=== PATIENT | female | born 1950 | race Two or more races ===

== ENCOUNTER 2025-05-31 12:39 | Emergency (ER) | payer OTHER ==
[~2025-05-31] VITALS: Ht 162.6 cm; Wt 92.0 kg
[2025-05-31 15:10] LABS: Hematocrit 48.9 % (36.0-46.0); Hemoglobin 16.5 g/dL (12.2-16.2); Mean Corpuscular Hemoglobin 31.8 pg (28.0-32.0); Mean Corpuscular Volume 94.0 fL (80.0-100.0); Nucleated Red Blood Cells % 0.2 %
[2025-05-31 15:17] LABS: Chloride 104 mmol/L (98-107); Potassium 4.3 mmol/L (3.5-5.1); Sodium 137 mmol/L (136-145)
[2025-05-31 15:18] LABS: Anion Gap 9 (5-15); Carbon Dioxide 24 mmol/L (20-31)
[2025-05-31 15:22] LABS: Calcium 10.5 mg/dL (8.7-10.4)
[2025-05-31 15:23] LABS: BUN/Creatinine Ratio 15.6 (10.0-20.0); Blood Urea Nitrogen 15 mg/dL (9-23); Glucose 95 mg/dL (74-106)
--- NOTE | 2025-05-31 16:22 | ED.PDOC ---
History of Present Illness HPI Comments 74 y/o obese F presents with friend for c/c headache and dizziness. 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 No endorsement of any recent injuries or ailments. Denial of any vision or speech changes, facial droop, lightheadedness, or further associated symptoms. History of HTN, HLD, PTCA, and NE Chief Complaint: Headache Time Seen by MD: 14:40 Reviewed Notes: Nurses Notes, Medications, Allergies Allergies: Uncoded Allergies: ORAL PAIN MEDICATIONS (Adverse Reaction, Intermediate, GI UPSET, 05/31/25) Information Source: Patient Mode of Arrival: Wheelchair Severity: Moderate Timing: Hours Duration: Since onset Prehospital treatment: None Past Medical History PAST MEDICAL HISTORY: High Lipids, HTN, NE Surgical History: PTCA All Other Systems: Reviewed and Negative (Comprehensive systems review obtained and negative except for what is stated in the HPI.) Physical Exam General Appearance: Moderate Distress HEENT: Normal ENT Inspection, Pharynx Normal, TMs Normal Neck: Full Range of Motion, Non-Tender, Normal, Normal Inspection Respiratory: Chest Non-Tender, Lungs Clear, No Accessory Muscle Use, No Respiratory Distress, Normal Breath Sounds Cardiovascular: No Edema, No JVD, No Murmur, No Gallop, Normal Peripheral Pulses, Regular Rate/Rhythm Breast Exam: Deferred Gastrointestinal: No Organomegaly, Non Tender, No Pulsatile Mass, Normal Bowel Sounds, Soft Genitalia: Deferred Pelvic: Deferred Rectal: Deferred Extremities: No calf tenderness, Normal capillary refill, Normal inspection, Normal range of motion, Non-tender, No pedal edema Musculoskeletal : Apperance: Normal Neurologic: Alert, mining manager II-XII nml as Tested, No Motor Deficits, Normal Affect, Normal Mood, No Sensory Deficits Cerebellar Function: Normal, NOT DONE Reflexes: Normal Skin: Dry, Normal Color, Warm Lymphatic: No Adenopathy Was a procedure done? Was a procedure done?: No EKG EKG : Pulse Rate (adult): 71 [place]: Normal Cardiac Rhythm: NSR Block: None Hypertrophy: None ST: Normal Differential Dx Considerations may include: cluster migraines, tension headaches, vertigo, arterial occlusion, CVA, TIA, among others X-Ray, Labs, Meds, VS Vital Signs Date Time Temp Pulse Resp B/P (MAP) Pulse Ox O2 Delivery O2 Flow Rate FiO2 05/31/25 17:34 76 20 157/86 05/31/25 16:22 71 05/31/25 15:49 98.7 73 16 143/98 (113) 96 98.7 05/31/25 15:49 73 16 96 Room Air 05/31/25 12:57 71 05/31/25 12:43 97.8 71 18 131/77 95 97.8 Lab Test 05/31/25 16:00 05/31/25 14:59 Range/Units Urine Color Colorless Yellow Urine Clarity Clear Clear Urine pH 5.0 5.0-9.0 Urine Specific [place] 1.008 1.001-1.035 Urine Protein Negative Negative Urine Ketones Negative Negative Urine Blood Negative Negative /uL Urine Nitrite Negative Negative Urine Bilirubin Negative Negative Urine Urobilinogen Normal Negative mg/dL Urine Leukocyte Esterase Negative Negative /uL Urine RBC <1 0 - 4 /hpf Urine Microscopic WBC 2 0-5 /HPF Urine Squamous Epithelial Cells None seen <5 /hpf Urine Bacteria None seen None Seen /hpf Urine Glucose Normal Normal mg/dL White Blood Count 10.3 4.4-10.8 10^3/uL Red Blood Count 5.20 4.0-5.20 10^6/uL Hemoglobin 16.5 H 12.2-16.2 g/dL Hematocrit 48.9 H 36.0-46.0 % Mean Corpuscular Volume 94.0 80.0-100.0 fL Mean Corpuscular Hemoglobin 31.8 28.0-32.0 pg Mean Corpuscular Hemoglobin Concent 33.8 32.0-36.0 g/dL Red Cell Distribution Width 15.4 H 11.8-14.3 % Platelet Count 221 140-450 10^3/uL Mean Platelet Volume 9.0 6.9-10.8 fL Neutrophils (%) (Auto) 60.5 37.0-80.0 % Lymphocytes (%) (Auto) 27.7 10.0-50.0 % Monocytes (%) (Auto) 7.0 0.0-12.0 % Eosinophils (%) (Auto) 3.9 0.0-7.0 % Basophils (%) (Auto) 0.9 0.0-2.0 % Neutrophils # (Auto) 6.2 1.6-8.6 10 ^3/uL Lymphocytes # (Auto) 2.8 0.4-5.4 10 ^3/uL Monocytes # (Auto) 0.7 0-1.3 10 ^3/uL Eosinophils # (Auto) 0.4 0-0.8 10 ^3/uL Basophils # (Auto) 0.1 0-0.2 10 ^3/uL Nucleated Red Blood Cells 0.2 % Sodium Level 137 136-145 mmol/L Potassium Level 4.3 3.5-5.1 mmol/L Chloride Level 104 98-107 mmol/L Carbon Dioxide Level 24 20-31 mmol/L Anion Gap 9 5-15 Blood Urea Nitrogen 15 9-23 mg/dL Creatinine 0.96 0.550-1.02 mg/dL Glomerular Filtration Rate Calc 62 >90 mL/min BUN/Creatinine Ratio 15.6 10.0-20.0 Serum Glucose 95 74-106 mg/dL Calcium Level 10.5 H 8.7-10.4 mg/dL Current Medications Medications (Trade) Dose Ordered Sig/Celestino Route Start Time Stop Time Status Last Admin Morphine Sulfate 4 mg ONCE ONCE IV 05/31/25 16:30 05/31/25 16:31 DC 05/31/25 17:34 Ondansetron HCl (Zofran) 4 mg ONCE ONCE IV 05/31/25 16:30 05/31/25 16:31 DC 05/31/25 17:32 Lorazepam (Ativan Inj) 1 mg ONCE ONCE IV 05/31/25 17:00 05/31/25 17:01 DC 05/31/25 16:56 Patient alert. Came in because of headache. Vitals stable. Answering questions. Moving all extremities. Reviewed her visit to [facility]. WBC within normal limits. Hemoglobin elevated. Establish intravenous access. Was given Ativan. Was given morphine. Was given Zofran. Spoke with [facility] physician. He will be following the patient. Explained to the patient. Continue monitoring. Time of 1ST Reevaluation: 13:20 Reevaluation 1ST: Unchanged Patient Education/Counseling: Diagnosis, Treatment, Other (need for admission ) Family Education/Counseling: No Family Present SEPSIS Sepsis Screen Date sepsis recognized/suspect: May 31, 2025 Time Sepsis recognized/suspect: 1243 Recent Procedure: No On Antibiotic Therapy: No Respiratory Rate >20: No Heart Rate >90: No Temp<36 C (96.8 F) or >38.3 C: No SBP <90 or MAP <65 mmHG: No New Acute Mental Status Change: No Is the patient on CPAP, BIPAP,: No Physician Orders Electrocardigram (05/31/25 13:03) Head Without Contrast (05/31/25 14:47) Ketorolac Injection (Toradol Injection) (05/31/25 18:00) Vital Signs Date Time Temp Pulse Resp B/P (MAP) Pulse Ox O2 Delivery O2 Flow Rate FiO2 05/31/25 17:34 76 20 157/86 05/31/25 16:22 71 05/31/25 15:49 98.7 73 16 143/98 (113) 96 98.7 05/31/25 15:49 73 16 96 Room Air 05/31/25 12:57 71 05/31/25 12:43 97.8 71 18 131/77 95 97.8 Laboratory Tests Test 05/31/25 14:59 White Blood Count 10.3 10^3/uL (4.4-10.8) Medications Medications Dose Ordered Sig/Celestino Route Start Time Stop Time Status Last Admin Dose Admin Lorazepam 1 mg ONCE ONCE IV 05/31/25 17:00 05/31/25 17:01 DC 05/31/25 16:56 Morphine Sulfate 4 mg ONCE ONCE IV 05/31/25 16:30 05/31/25 16:31 DC 05/31/25 17:34 Ondansetron HCl 4 mg ONCE ONCE IV 05/31/25 16:30 05/31/25 16:31 DC 05/31/25 17:32 Departure 1 Departure Time of Disposition: 18:04 Impression: Primary Impression: Carotid stenosis Qualified Codes: I65.29 - Occlusion and stenosis of unspecified carotid artery Disposition: ADMITTED INPATIENT Admit to: Med Surg Condition: Guarded Critical Care Note Critical Care Time?: No Stability Stability form required: No Heart Score Heart Score: Heart Score Response (Comments) Value History Slightly Suspicious 0 EKG Normal 0 Age >65 2 Risk Factors 1 or 2 risk factors 1 Troponin N/A 0 Total 3 I personally scribed for STACEY RUSH MD ([email or web address]) on 05/31/25 at 16:22. Electronically submitted by Olayinka Rodríguez ([email or web address]). STACEY RUSH MD May 31, 2025 16:22
[2025-05-31] MEDS: LORazepam 0.5 MG TAB PO ONE (16:48)
[2025-05-31] MEDS: LORazepam 2MG/ML-1ML VIAL IV ONE (16:56)
--- NOTE | 2025-05-31 17:31 | DVH ---
EXAM: CT HEAD WITHOUT CONTRAST INDICATION: headache TECHNIQUE: CT images of the head were obtained without administration of IV contrast. CT scans at [facility] facility use dose modulation, iterative reconstruction, and/or weight based dosing when appropriate to reduce radiation dose to as low as reasonably achievable. COMPARISON: None FINDINGS: PARENCHYMA: No acute hemorrhage. There is no mass effect, midline shift, or herniation. There is pres ervation of the weinstein white differentiation. Mild scattered hypoattenuation along the periventricular, centrum semiovale, and deep white matter tracts, which are nonspecific however statistically most li charles represent chronic microvascular ischemic change. VENTRICLES: No hydrocephalus. EXTRA-AXIAL SPACES: No extra-axial fluid collections. OTHER: The bony structures are intact. Visualized portions of the paranasal sinuses and mastoid air cells are clear. IMPRESSION: 1. No CT evidence of an acute intracranial abnormality.
[2025-05-31] MEDS: ONDANSETRON HCL 4 MG/2 ML VIAL IV ONE ×2 (17:32→21:24)
[2025-05-31] MEDS: MORPHINE SULFATE 4 MG/ML SYR/VIAL IV ONE (17:34)
[2025-05-31 17:35] LABS: Urine Protein, UAD Negative (Negative)
[2025-05-31 18:29] VITALS: PULSE 59; RESP 17; TEMP 97.3; O2SAT 93
[2025-05-31] MEDS: KETOROLAC TROMETH 30 MG/ML 1ML VIAL IV ONE ×2 (18:41→21:24)
[2025-05-31] MEDS ORDERED: ASPI-325 PO (19:26)
[2025-05-31] MEDS ORDERED: ATOR40TA52 PO (19:26)
[2025-05-31 20:00] VITALS: PULSE 60; RESP 18; O2SAT 100
[2025-05-31 20:01] VITALS: BP 136/50; PULSE 61; RESP 18; O2SAT 100
[2025-05-31] MEDS: IOHEXOL 350 MG/ML 100ML IJ ONE (20:38)
[2025-05-31] MEDS: SODIUM CHLORIDE 0.9% 1,000 ML IV ONE (20:38)
--- NOTE | 2025-05-31 20:52 | DVH ---
CT CT ANGIO NECK CONTRAST INDICATION: 95% right carotid stenosis on ultrasound TECHNIQUE: . CT angiography along with MIP and MPR images were obtained of the cervical carotid and v ertebral arteries. All CT scans at this facility use dose modulation, iterative reconstruction, and/o r weight based dosing when appropriate to reduce radiation dose to as low as reasonably achievable. 3 -D postprocessing was performed on a separate workstation under radiologist supervision. IV CONTRAST: 100 mL of low osmolar intravenous iodinated contrast material was administered. COMPARISON: None FINDINGS: CERVICAL VESSELS: Bilateral cervical vessels are patent. Mixed atherosclerotic plaque causing up to 50 percent stenosi s of the left carotid bulb without hemodynamically significant stenosis less than 50 percent stenosis in the right carotid bulb secondary to mixed atherosclerotic plaque bilateral vertebral arteries are patent. Partially visualized [place] is grossly patent. OTHER: Mild centrilobular emphysema. IMPRESSION: 1. No large vessel occlusion, aneurysmal dilatation, or dissection seen within the cervical vessels. 2. Estimated less than 50 percent stenosis of the right carotid bulb to proximal internal carotid art dat 3. Estimated 50 percent stenosis of the left carotid bulb.
[2025-05-31] MEDS: ONDANSETRON HCL 4 MG/2 ML VIAL ONE (21:24)
--- NOTE | 2025-05-31 22:00 | DVHDS2 ---
Discharge Summary Date of Admission Date of Discharge: May 31, 2025 Labs/Diagnostic Data: Laboratory Results Test 05/31/25 16:00 05/31/25 14:59 Urine Color Colorless (Yellow) Urine Clarity Clear (Clear) Urine pH 5.0 (5.0-9.0) Urine Specific [place] 1.008 (1.001-1.035) Urine Protein Negative (Negative) Urine Ketones Negative (Negative) Urine Blood Negative /uL (Negative) Urine Nitrite Negative (Negative) Urine Bilirubin Negative (Negative) Urine Urobilinogen Normal mg/dL (Negative) Urine Leukocyte Esterase Negative /uL (Negative) Urine RBC <1 /hpf (0 - 4) Urine Microscopic WBC 2 /HPF (0-5) Urine Squamous Epithelial Cells None seen /hpf (<5) Urine Bacteria None seen /hpf (None Seen) Urine Glucose Normal mg/dL (Normal) White Blood Count 10.3 10^3/uL (4.4-10.8) Red Blood Count 5.20 10^6/uL (4.0-5.20) Hemoglobin 16.5 g/dL (12.2-16.2) Hematocrit 48.9 % (36.0-46.0) Mean Corpuscular Volume 94.0 fL (80.0-100.0) Mean Corpuscular Hemoglobin 31.8 pg (28.0-32.0) Mean Corpuscular Hemoglobin Concent 33.8 g/dL (32.0-36.0) Red Cell Distribution Width 15.4 % (11.8-14.3) Platelet Count 221 10^3/uL (140-450) Mean Platelet Volume 9.0 fL (6.9-10.8) Neutrophils (%) (Auto) 60.5 % (37.0-80.0) Lymphocytes (%) (Auto) 27.7 % (10.0-50.0) Monocytes (%) (Auto) 7.0 % (0.0-12.0) Eosinophils (%) (Auto) 3.9 % (0.0-7.0) Basophils (%) (Auto) 0.9 % (0.0-2.0) Neutrophils # (Auto) 6.2 10 ^3/uL (1.6-8.6) Lymphocytes # (Auto) 2.8 10 ^3/uL (0.4-5.4) Monocytes # (Auto) 0.7 10 ^3/uL (0-1.3) Eosinophils # (Auto) 0.4 10 ^3/uL (0-0.8) Basophils # (Auto) 0.1 10 ^3/uL (0-0.2) Nucleated Red Blood Cells 0.2 % Sodium Level 137 mmol/L (136-145) Potassium Level 4.3 mmol/L (3.5-5.1) Chloride Level 104 mmol/L (98-107) Carbon Dioxide Level 24 mmol/L (20-31) Anion Gap 9 (5-15) Blood Urea Nitrogen 15 mg/dL (9-23) Creatinine 0.96 mg/dL (0.550-1.02) Glomerular Filtration Rate Calc 62 mL/min (>90) BUN/Creatinine Ratio 15.6 (10.0-20.0) Serum Glucose 95 mg/dL (74-106) Calcium Level 10.5 mg/dL (8.7-10.4) Other Laboratory Tests 05/31/25 14:59 Final Diagnosis/Problems List Carotid Stenosis Discharge Disposition: Home Discharge Instruct/Medications Diet: Cardiac 2g Na,low cholest Activity: No Restrictions, As Tolerated Follow Up/Referral: Follow up with vascular surgery as scheduled for next week. Medications: Continue taking aspirin 81mg daily and atorvastatin. Scheduled Aspirin (Aspirin Low Dose), 81 MG PO DAILY Atorvastatin Calcium (Atorvastatin Calcium), 40 MG PO DAILY Discharge Statement: "Patient was advised to return to the ER or call 911 if any headaches, dizziness, shortness of breath, chest pain, abdominal pain, bleeding, fevers, or worsening of medical condition. Patient was counseled about treatment plan, medications, possible side effects, patientverbalized understanding. All questions were answered to the best of my ability. This discharge took greater then 30 minutes in planning, reviewing documentation, counseling the patient, and discussing with other team members." ASSESSMENT ASSESSMENT Assessment Carotid Stenosis JESUS ARRIOLA DO May 31, 2025 22:00
== END 2025-05-31 21:38 | disposition home or self-care (01) ==
LOC: ER 12:39
DX: R51.9 Headache, unspecified (principal); I65.23 Occlusion and stenosis of bilateral carotid arteries; I10 Essential (primary) hypertension; E78.5 Hyperlipidemia, unspecified; I25.2 Old myocardial infarction; Z79.82 Long term (current) use of aspirin; Z79.899 Other long term (current) drug therapy
CPT/HCPCS: 36415; 70450; 70498; 80048; 81001; 85025; 96361; 96374; 96375; 96376; 99285; J1885; J2060; J2270; J2405; Q9967